=== PATIENT | male | born 1965 | race Caucasian/White ===

== ENCOUNTER 2021-06-26 10:00 | Outpatient (CLI) | payer MEDICAID, SELFPAY ==
[~2021-06-26] VITALS: Ht 190.5 cm; Wt 120.2 kg
== END 2021-06-26 11:00 | disposition home or self-care (01) ==
LOC: SLB 10:00 → EDSTATUS 07-09 09:15
PROVIDERS: ATTEND Internal Medicine
DX: Z01.818 Encounter for other preprocedural examination (principal); M51.16 Intervertebral disc disorders with radiculopathy, lumbar region; M54.2 Cervicalgia; M79.10 Myalgia, unspecified site; G89.4 Chronic pain syndrome; Z20.822 Contact with and (suspected) exposure to COVID-19
CPT/HCPCS: 36415

== ENCOUNTER 2021-07-26 08:43 | Day surgery (SDC) | payer MEDICAID, SELFPAY ==
[~2021-07-26] VITALS: Ht 190.5 cm; Wt 120.2 kg
[2021-07-26] MEDS ORDERED: LIDOCAINE 2%, 20 ML MDV INJ ONE (08:44)
[2021-07-26] MEDS ORDERED: DEXAMETHASONE SOD PHOSPHATE 4 MG/ML VIAL IVP ONE (08:44)
[2021-07-26] MEDS ORDERED: BUPIVACAINE /PF 0.25% 30 ML VIAL INJ ONE (08:44)
[2021-07-26] MEDS ORDERED: IOPAMIDOL 50 ML VIAL IV ONE (08:44)
[2021-07-26] MEDS ORDERED: MORPHINE 2 MG/ML INJ. SYRINGE IVP ONE (11:15)
[2021-07-26] MEDS ORDERED: MORPHINE SULFATE 10 MG/ML VIAL ONE ×2 (11:28→11:55)
[2021-07-26] MEDS ORDERED: DIPHENHYDRAMINE INJ 50 MG/ML VIAL ONE (11:54)
[2021-07-26] MEDS ORDERED: MIDAZOLAM HCL 5 MG/5 ML VIAL ONE (11:55)
[2021-07-26 16:46] VITALS: BP_SYST 145
== END 2021-07-26 15:00 | disposition home or self-care (01) ==
LOC: SDS 08:43 → SMU 08:45 → SDS 15:00
PROVIDERS: ATTEND Internal Medicine
DX: M51.16 Intervertebral disc disorders with radiculopathy, lumbar region (principal); M54.2 Cervicalgia; K42.9 Umbilical hernia without obstruction or gangrene; E11.9 Type 2 diabetes mellitus without complications; E66.9 Obesity, unspecified; Z20.822 Contact with and (suspected) exposure to COVID-19
CPT/HCPCS: 36415; 64483; 82962; 87426; J1200; J2250; J2270; 62323; 76000; J1100; J2001; J3490; Q9967

== ENCOUNTER 2022-01-08 06:56 | Day surgery (SDC) | payer MEDICAID ==
[~2022-01-08] VITALS: Ht 190.5 cm; Wt 122.5 kg
[2022-01-08] MEDS ORDERED: MIDAZOLAM HCL 5 MG/5 ML VIAL ONE (08:41)
[2022-01-08] MEDS ORDERED: methylPREDNISolone ACETATE 40 MG/ML ONE (08:42)
[2022-01-08] MEDS ORDERED: IOHEXOL 300 mgI/mL, 50 mL INFUS..BTL IV ONE (08:42)
[2022-01-08] MEDS ORDERED: DIPHENHYDRAMINE INJ 50 MG/ML VIAL ONE (08:42)
[2022-01-08] MEDS ORDERED: BUPIVACAINE /PF 0.25% 30 ML VIAL INJ ONE (08:42)
[2022-01-08] MEDS ORDERED: LIDOCAINE 2%, 20 ML MDV ONE (08:42)
[2022-01-08] MEDS ORDERED: ONDANSETRON HCL 4 MG/2 ML VIAL ONE ×2 (09:24→10:14)
[2022-01-08] MEDS ORDERED: MORPHINE 2 MG/ML INJ. SYRINGE ONE (09:25)
[2022-01-08] MEDS ORDERED: MORPHINE 2 MG/ML INJ. SYRINGE IVP ONE (09:30)
[2022-01-08] MEDS ORDERED: ONDANSETRON HCL 4 MG/2 ML VIAL IVP ONE (09:30)
[2022-01-08 10:35] VITALS: BP_SYST 121
== END 2022-01-08 10:31 | disposition home or self-care (01) ==
LOC: SDS 06:56 → SMU 07:10 → SDS 10:31
PROVIDERS: ATTEND Internal Medicine
DX: M47.26 Other spondylosis with radiculopathy, lumbar region (principal); M51.16 Intervertebral disc disorders with radiculopathy, lumbar region; Z20.822 Contact with and (suspected) exposure to COVID-19; E11.9 Type 2 diabetes mellitus without complications; E66.9 Obesity, unspecified; M54.2 Cervicalgia; K42.9 Umbilical hernia without obstruction or gangrene; G89.4 Chronic pain syndrome; Z79.4 Long term (current) use of insulin; Z79.899 Other long term (current) drug therapy
CPT/HCPCS: 36415; 64483; 82962; 87426; J1030; J1200; J2001; J2250; J2270; J2405; J3490; Q9967; 76000

== ENCOUNTER 2022-03-12 06:43 | Day surgery (SDC) | payer MEDICAID ==
[~2022-03-12] VITALS: Ht 190.5 cm; Wt 122.5 kg
[2022-03-12] MEDS ORDERED: DIPHENHYDRAMINE INJ 50 MG/ML VIAL ONE (09:00)
[2022-03-12] MEDS ORDERED: MIDAZOLAM HCL 5 MG/5 ML VIAL ONE (09:00)
[2022-03-12] MEDS ORDERED: NS IRRIG SOLN 1000 ML IR ONE (09:35)
[2022-03-12] MEDS ORDERED: MORPHINE SULFATE 10 MG/ML VIAL ONE (09:35)
[2022-03-12] MEDS ORDERED: methylPREDNISolone ACETATE 80 MG/ML IM ONE (09:35)
[2022-03-12] MEDS ORDERED: DEXAMETHASONE SOD PHOSPHATE 4 MG/ML VIAL ONE (09:35)
[2022-03-12] MEDS ORDERED: LIDOCAINE 2%, 20 ML MDV ONE (09:35)
[2022-03-12] MEDS ORDERED: IOPAMIDOL 50 ML VIAL IV ONE (09:35)
[2022-03-12] MEDS ORDERED: BUPIVACAINE /PF 0.25% 30 ML VIAL INJ ONE (09:35)
[2022-03-12] MEDS ORDERED: ONDANSETRON HCL 4 MG/2 ML VIAL ONE ×2 (09:35→09:40)
[2022-03-12] MEDS: MORPHINE SULFATE 10 MG/ML VIAL ONE ×4 (09:47→09:54)
[2022-03-12] MEDS ORDERED: HYDROmorphone 1 MG/ML INJ. CARTRIDGE ONE ×2 (10:47→12:08)
[2022-03-12] MEDS ORDERED: BACLOFEN 10 MG TABLET PO ONE ×2 (12:15→13:15)
[2022-03-12] MEDS ORDERED: HYDROmorphone 1 MG/ML INJ. CARTRIDGE IVP ONE (12:15)
[2022-03-12 14:00] VITALS: BP_SYST 135
== END 2022-03-12 14:00 | disposition home or self-care (01) ==
LOC: SDS 06:43 → SMU 06:45 → SDS 14:00
PROVIDERS: ATTEND Internal Medicine
DX: M47.26 Other spondylosis with radiculopathy, lumbar region (principal); M51.16 Intervertebral disc disorders with radiculopathy, lumbar region; M54.2 Cervicalgia; G89.4 Chronic pain syndrome; K42.9 Umbilical hernia without obstruction or gangrene; E66.9 Obesity, unspecified; E11.9 Type 2 diabetes mellitus without complications; Z79.899 Other long term (current) drug therapy; Z20.822 Contact with and (suspected) exposure to COVID-19
CPT/HCPCS: 36415; 64483; 82962; 87426; J1040; J1100; J1170; J2001; J2270; J2405; J3490; Q9967; 76000; J1200; J2250